=== PATIENT | female | born 1950 | race Hispanic/Latino ===

== ENCOUNTER 2020-04-11 02:11 | Emergency (ER) | payer OTHER ==
[2020-04-11 03:43] LABS: Absolute Lymphocytes (CBC) 2.2 K/uL (0.7-4.9); Basophils % 0.5 % (0-1.3); Hematocrit 41.7 % (36.0-45.0); RBC Red Blood Cell Count 4.63 M/uL (3.86-4.86)
[2020-04-11 03:51] LABS: Protime INR 0.98
[2020-04-11 04:06] LABS: Albumin 3.5 g/dL (3.4-5.0); Bilirubin Direct 0.1 mg/dL (0-0.2); Bilirubin Total 0.3 mg/dL (0.2-1.0); Magnesium 1.9 mg/dL (1.8-2.4); Potassium 3.9 mmol/L (3.5-5.1); Protein, Total 8.6 g/dL (6.4-8.2); Troponin (Emerg Dept Use Only) 0.02 ng/mL (0.0-0.045)
--- NOTE | 2020-04-11 04:28 | ER ---
Nurse's Notes [facility] Name: Johanna Song Age: 69 yrs Sex: Female : 1950 Arrival Date: 04/11/2020 Time: 02:13 Bed 6 Private MD: Diagnosis: Near Syncope;Chest Pain Presentation: 04/11 02:15 Chief complaint: Patient's son or daughter states: pt called her tonight approx 0145 bb and reported that she was feeling dizzy and not right daughter checked her BP and it was elevated at approx 200/100. Coronavirus screen: At this time, the client does not indicate any symptoms associated with coronavirus-19. Ebola Screen: No symptoms or risks identified at this time. Initial Sepsis Screen: Does the patient meet any 2 criteria? No. Patient's initial sepsis screen is negative. Does the patient have a suspected source of infection? No. Patient's initial sepsis screen is negative. Risk Assessment: Do you want to hurt yourself or someone else? Patient reports no desire to harm self or others. Onset of symptoms was April 11, 2020. 02:15 Method Of Arrival: Ambulatory bb 02:15 Acuity: CHAPIN 2 bb Historical: - Allergies: 02:42 No Known Allergies; bb - Home Meds: 02:42 Albuterol Inhl [Active]; gabapentin 300 mg oral cap 1 cap 3 times per day [Active]; bb CertaVite Senior-Antioxidant 0.4-300-250 mg-mcg-mcg oral tab [Active]; folic acid 1 mg Oral tab 1 tab once daily [Active]; amlodipine 5 mg tab 1 tab once daily [Active]; metoprolol tartrate 25 mg Oral tab 1 tab 2 times per day [Active]; losartan potassium 100 mg daily [Active]; Mpap arthritis 650 mg as needed [Active]; Januvia 100 mg oral tab 1 tab once daily [Active]; BRILINTA 90 mg oral tab 1 tab 2 times per day [Active]; Calcium 600 + D(3) 600 mg(1,500mg) -400 unit oral tab twice a day [Active]; hydrochlorothiazide 25 mg Oral tab 1 tab once daily [Active]; ferrous sulfate 325 mg (65 mg iron) Oral TbEC daily [Active]; metformin 1,000 mg Oral tab 1 tab 2 times per day [Active]; atorvastatin 20 mg oral tab 1 tab once daily [Active]; Tresiba FlexTouch U-100 100 unit/mL (3 mL) subcutaneous inpn 60 unit daily [Active]; - PMHx: 02:42 High Cholesterol; Hypertension; Diabetes - IDDM; Myocardial infarction; CAD; bb - PSHx: 02:42 knee replacement; cataract; cornea surgery; bb - Immunization history:: Adult Immunizations unknown. - Social history:: Smoking status: unknown. Screenin:42 Abuse screen: Denies threats or abuse. Denies injuries from another. Nutritional mg2 screening: No deficits noted. Tuberculosis screening: No symptoms or risk factors identified. Fall Risk Fall in past 12 months (25 points). IV access (20 points). Assessment: 02:36 General: Appears in no apparent distress. comfortable, Behavior is calm, cooperative. mg2 Pain: Denies pain. Neuro: Level of Consciousness is awake, alert, obeys commands, Oriented to person, place, time, situation, Reports dizziness. Cardiovascular: Capillary refill < 3 seconds Patient's skin is warm and dry. Respiratory: Airway is patent Respiratory effort is even, unlabored, Respiratory pattern is regular, symmetrical. GI: No signs and/or symptoms were reported involving the gastrointestinal system. : EENT: No signs and/or symptoms were reported regarding the EENT system. Derm: Skin is intact, is healthy with good turgor, Skin is pink, warm \T\ dry. normal. Musculoskeletal: Circulation, motion, and sensation intact. Capillary refill < 3 seconds. 03:30 Reassessment: Patient appears in no apparent distress at this time. Patient and/or mg2 family updated on plan of care and expected duration. Pain level reassessed. Patient is alert, oriented x 3, equal unlabored respirations, skin warm/dry/pink. 04:30 Reassessment: Patient appears in no apparent distress at this time. Patient and/or mg2 family updated on plan of care and expected duration. Pain level reassessed. Patient is alert, oriented x 3, equal unlabored respirations, skin warm/dry/pink. 05:00 Reassessment: patient referred to hospitalist. seen by Flo GÓMEZ -hospitalist and advised mg2 admission but patient refused because she is feeling better and she is going back to her [place] after tomorrow. risk explained and she signed the AMA. accompanied by the family home. Vital Signs: 02:15 BP 186 / 79; Pulse 79; Resp 14 S; Temp 98.3(O); Pulse Ox 94% on R/A; Weight 95.25 kg bb (R); Height 5 ft. 1 in. (154.94 cm) (R); Pain 0/10; 02:36 BP 165 / 58; Pulse 73; Resp 14 S; Pulse Ox 94% on R/A; sg 03:42 BP 179 / 63; Pulse 63; Resp 18; Pulse Ox 94% on R/A; mg2 04:00 BP 137 / 75; Pulse 66; Resp 16; Pulse Ox 96% on R/A; sg 05:00 BP 145 / 55; Pulse 65; Resp 18; Temp 98.2(TE); Pulse Ox 96% on R/A; mg2 02:15 Body Mass Index 39.68 (95.25 kg, 154.94 cm) bb ED Course: 02:13 Patient arrived in ED. am2 02:23 Tomy Darnell MD is Attending Physician. mh7 02:23 Matt Crockett, RN is Primary Nurse. jb4 02:25 Primary Nurse role handed off by Matt Crockett, RN sg 02:25 Vinny Goldstein, RN is Primary Nurse. sg 02:34 Triage completed. bb 02:42 Arm band placed on Patient placed in an exam room, on a stretcher, on front desk monitor, bb on pulse oximetry. EKG completed in triage. Results shown to MD. 03:03 XRAY Chest (1 view) In Process Unspecified. EDMS 03:11 CT Head Brain wo Cont In Process Unspecified. EDMS 03:14 Patient moved back from CT. sg 03:33 Initial lab(s) drawn, by ED staff, sent to lab. Inserted saline lock: 22 gauge in left tt3 antecubital area, using aseptic technique. Blood collected. 03:42 Patient has correct armband on for positive identification. mg2 03:42 No provider procedures requiring assistance completed. mg2 04:26 Lito Early MD is Hospitalizing Provider. mh7 04:48 Watson Payne MD is Referral Physician. mh7 Administered Medications: No medications were administered Outcome: 04:27 Decision to Hospitalize by Provider. mh7 05:06 Patient left the ED. sg Signatures: Dispatcher [employer] Vinny Hyde RN RN sg Beba Rajput RN RN bb Matt Crockett RN RN jb4 Ruma Taylor am Palomo Dillard RN RN [facility] [place] Tomy Darnell MD MD mh7 Thomas Dominique 3
--- NOTE | 2020-04-11 04:28 | EDPHYS ---
Physician Documentation [facility] Name: Johanna Song Age: 69 yrs Sex: Female : 1950 Arrival Date: 04/11/2020 Time: 02:13 Bed 6 Private MD: ED Physician Tomy Darnell HPI: 04/11 02:50 This 69 yrs old Female presents to ER via Ambulatory with complaints of High mh7 Blood Pressure. 02:51 The patient presents with dizziness, feeling faint, lightheadedness. Onset: The mh7 symptoms/episode began/occurred today, at 01:30. Context: occurred at home, occurred while the patient was at rest, just prior to the episode the patient experienced no apparent symptoms. Modifying factors: The symptoms are alleviated by nothing, the symptoms are aggravated by nothing. Associated signs and symptoms: Pertinent positives: chest pain, nausea, near-syncope, shortness of breath, Pertinent negatives: abdominal pain, agitation, ataxia, blurred vision, combativeness, confusion, diaphoresis, focal weakness, head injury, numbness, palpitations, , seizure, syncope, tingling, vomiting. Severity of symptoms: At their worst the symptoms were moderate today, in the emergency department the symptoms have improved moderately. Historical: - Allergies: 02:42 No Known Allergies; bb - Home Meds: 02:42 Albuterol Inhl [Active]; gabapentin 300 mg oral cap 1 cap 3 times per day [Active]; bb CertaVite Senior-Antioxidant 0.4-300-250 mg-mcg-mcg oral tab [Active]; folic acid 1 mg Oral tab 1 tab once daily [Active]; amlodipine 5 mg tab 1 tab once daily [Active]; metoprolol tartrate 25 mg Oral tab 1 tab 2 times per day [Active]; losartan potassium 100 mg daily [Active]; Mpap arthritis 650 mg as needed [Active]; Januvia 100 mg oral tab 1 tab once daily [Active]; BRILINTA 90 mg oral tab 1 tab 2 times per day [Active]; Calcium 600 + D(3) 600 mg(1,500mg) -400 unit oral tab twice a day [Active]; hydrochlorothiazide 25 mg Oral tab 1 tab once daily [Active]; ferrous sulfate 325 mg (65 mg iron) Oral TbEC daily [Active]; metformin 1,000 mg Oral tab 1 tab 2 times per day [Active]; atorvastatin 20 mg oral tab 1 tab once daily [Active]; Tresiba FlexTouch U-100 100 unit/mL (3 mL) subcutaneous inpn 60 unit daily [Active]; - PMHx: 02:42 High Cholesterol; Hypertension; Diabetes - IDDM; Myocardial infarction; CAD; bb - PSHx: 02:42 knee replacement; cataract; cornea surgery; bb - Immunization history:: Adult Immunizations unknown. - Social history:: Smoking status: unknown. ROS: 02:51 Constitutional: Negative for fever, chills, and weight loss, Eyes: Negative for injury, mh7 pain, redness, and discharge, ENT: Negative for injury, pain, and discharge, Neck: Negative for injury, pain, and swelling, Back: Negative for injury and pain, : Negative for injury, bleeding, discharge, and swelling, MS/Extremity: Negative for injury and deformity, Skin: Negative for injury, rash, and discoloration, Psych: Negative for depression, anxiety, suicide ideation, homicidal ideation, and hallucinations, Allergy/Immunology: Negative for hives, rash, and allergies, Endocrine: Negative for neck swelling, polydipsia, polyuria, polyphagia, and marked weight changes, Hematologic/Lymphatic: Negative for swollen nodes, abnormal bleeding, and unusual bruising. Exam: 02:51 Head/Face: Normocephalic, atraumatic. Eyes: Pupils equal round and reactive to light, mh7 extra-ocular motions intact. Lids and lashes normal. Conjunctiva and sclera are non-icteric and not injected. Cornea within normal limits. Periorbital areas with no swelling, redness, or edema. Neck: Trachea midline, no thyromegaly or masses palpated, and no cervical lymphadenopathy. Supple, full range of motion without nuchal rigidity, or vertebral point tenderness. No Meningismus. Chest/axilla: Normal chest wall appearance and motion. Nontender with no deformity. No lesions are appreciated. Cardiovascular: Regular rate and rhythm with a normal S1 and S2. No gallops, murmurs, or rubs. Normal PMI, no JVD. No pulse deficits. Respiratory: Lungs have equal breath sounds bilaterally, clear to auscultation and percussion. No rales, rhonchi or wheezes noted. No increased work of breathing, no retractions or nasal flaring. Abdomen/GI: Soft, non-tender, with normal bowel sounds. No distension or tympany. No guarding or rebound. No evidence of tenderness throughout. Back: No spinal tenderness. No costovertebral tenderness. Full range of motion. Skin: Warm, dry with normal turgor. Normal color with no rashes, no lesions, and no evidence of cellulitis. MS/ Extremity: Pulses equal, no cyanosis. Neurovascular intact. Full, normal range of motion. Neuro: Awake and alert, GCS 15, oriented to person, place, time, and situation. Cranial nerves II-XII grossly intact. Motor strength 5/5 in all extremities. Sensory grossly intact. Cerebellar exam normal. Normal gait. Psych: Awake, alert, with orientation to person, place and time. Behavior, mood, and affect are within normal limits. 02:51 Constitutional: The patient appears in no acute distress, alert, awake, anxious. Vital Signs: 02:15 BP 186 / 79; Pulse 79; Resp 14 S; Temp 98.3(O); Pulse Ox 94% on R/A; Weight 95.25 kg bb (R); Height 5 ft. 1 in. (154.94 cm) (R); Pain 0/10; 02:36 BP 165 / 58; Pulse 73; Resp 14 S; Pulse Ox 94% on R/A; sg 03:42 BP 179 / 63; Pulse 63; Resp 18; Pulse Ox 94% on R/A; mg2 04:00 BP 137 / 75; Pulse 66; Resp 16; Pulse Ox 96% on R/A; sg 05:00 BP 145 / 55; Pulse 65; Resp 18; Temp 98.2(TE); Pulse Ox 96% on R/A; mg2 02:15 Body Mass Index 39.68 (95.25 kg, 154.94 cm) bb MDM: 02:48 Patient medically screened. mh7 04:15 Differential diagnosis: cardiac arrhythmia, CVA, generalized weakness, mh7 hyperventilation, hypovolemia, idiopathic dizziness, near-syncope, syncope, TIA, vertigo. Data reviewed: vital signs, nurses notes. 04:26 Data interpreted: groundwater monitoring technician: Pulse oximetry: on room air is 96 %. Interpretation: mh7 normal. Counseling: I had a detailed discussion with the patient and/or guardian regarding: the historical points, exam findings, and any diagnostic results supporting the discharge/admit diagnosis, the presence of at least one elevated blood pressure reading (>120/80) during this emergency department visit, lab results, radiology results, the need for further work-up and treatment in the hospital. Response to treatment: the patient's symptoms have markedly improved after treatment. 04:45 Refusal of service: The patient/guardian displays adequate decision making capability [facility] and despite a detailed discussion of alternatives, benefits, risks, and consequences refuses: Admission to the hospital for further work-up and treatment. 06:29 ED course: Feels better, NAD, VSS, no focal neurological deficits. No chest pain, SOB, 7 dizziness, headache, nausea, or vomiting. Patient refused admission for further care and evaluation and decided to leave against medical advice. Explained the possibility of permanent disability and or if condition worsened. She has a normal mental status and neurological exam. She knows that she can return to the ED with any concerns.. 04/11 02:50 Order name: Basic Metabolic Panel; Complete Time: 04:09 04/11 02:50 Order name: CBC with Diff; Complete Time: 04:09 04/11 02:50 Order name: LFT's; Complete Time: 04: 04/11 02:50 Order name: Magnesium; Complete Time: 04:09 04/11 02:50 Order name: NT PRO-BNP; Complete Time: 04:09 04/11 02:50 Order name: PT-INR; Complete Time: 04:09 04/11 02:50 Order name: Troponin (emerg Dept Use Only); Complete Time: 04:09 04/11 02:50 Order name: XRAY Chest (1 view) [facility] 04/11 02:50 Order name: EKG; Complete Time: 02:51 04/11 02:50 Order name: Cardiac monitoring; Complete Time: 03:14 04/11 02:50 Order name: EKG - Nurse/Tech; Complete Time: 03:25 04/11 02:50 Order name: IV Saline Lock; Complete Time: 03:25 04/11 02:50 Order name: Labs collected and sent; Complete Time: 03:25 [facility] 04/11 02:50 Order name: CT Head Brain wo Cont [facility] 04/11 02:50 Order name: O2 Per Protocol; Complete Time: 03:25 [facility] 04/11 02:50 Order name: O2 Sat Monitoring; Complete Time: 03:25 [facility] Administered Medications: No medications were administered Disposition: 04/11/20 04:46 Patient has left against medical advice. Impression: Near Syncope, Chest Pain. - Patients states they are going to Home. - Condition is Stable. - Discharge Instructions: Nonspecific Chest Pain, [id number], Dizziness, [id number]. Follow up: Private Physician; When: Today; Reason: Worsening of condition, Recheck today's complaints, Continuance of care, Re-evaluation by your physician. Follow up: Watson Payne MD; When: Today; Reason: Worsening of condition, Recheck today's complaints, Re-evaluation by your physician. - Problem is new. - Symptoms have improved. Signatures: Dispatcher [employer] EDMS Vinny Goldstein RN RN sg Ballard, Brenda, RN RN Tomy Abreu MD MD [facility] Corrections: (The following items were deleted from the chart) 04:45 04:27 Hospitalization Ordered by Lito Early MD for Observation. Preliminary [facility] diagnosis is Near Syncope; Chest Pain. Bed requested for Telemetry/MedSurg (observation). Status is Observation. Condition is Stable. Problem is new. Symptoms have improved. [facility] 04:49 04:46 04/11/2020 04:46 Patients has left against medical advice. Impression: Near mh7 Syncope; Chest Pain. Patient states they are going to Home. Condition is Stable. Follow up: Private Physician; When: Today; Reason: Worsening of condition, Recheck today's complaints, Continuance of care, Re-evaluation by your physician. Problem is new. Symptoms have improved. 7 05:06 04:49 04/11/2020 04:46 Patients has left against medical advice. Impression: Near sg Syncope; Chest Pain. Patient states they are going to Home. Condition is Stable. Discharge Instructions: Nonspecific Chest Pain, [id number], Dizziness, [id number]. Follow up: Private Physician; When: Today; Reason: Worsening of condition, Recheck today's complaints, Continuance of care, Re-evaluation by your physician. Follow up: Watson Payne; When: Today; Reason: Worsening of condition, Recheck today's complaints, Re-evaluation by your physician. Problem is new. Symptoms have improved. mh7
[2020-04-11 05:22] VITALS: TEMP 98.3
[2020-04-11 05:26] VITALS: BP 137/75; O2SAT 96
--- NOTE | 2020-04-11 08:33 | RAD REPORT ---
EXAM DESCRIPTION: RAD - Chest Single View - 04/11/2020 3:03 am CLINICAL HISTORY: SOB Chest pain. COMPARISON: No comparisons FINDINGS: Portable technique limits examination quality. Mild interstitial prominence is seen bilaterally. The heart is upper limit normal in size. No displac ed fractures. IMPRESSION: Mild CHF versus interstitial pneumonia.
--- NOTE | 2020-04-11 16:23 | RAD REPORT ---
EXAM DESCRIPTION: Head Brain Wo Cont CLINICAL HISTORY: DIZZINESS COMPARISON: None. TECHNIQUE: CT HEAD WITHOUT IV CONTRAST on 04/11/2020 2:50 AM CDT This exam was performed according to our departmental dose-optimization program, which includes autom ated exposure control, adjustment of the mA and/or kV according to patient size and/or use of iterati ve reconstruction technique. FINDINGS: There is no acute hemorrhage, mass effect or midline shift. Velasquez-white differentiation is preserved. There is no hydrocephalus. There is no significant volume loss for age. The calvarium is intact. Orbits and globes are unremarkable. The paranasal sinuses are clear. Mastoid air cells are clear. IMPRESSION: No acute intracranial findings. Electronically signed by: Александр Hurst MD 04/11/2020 3:16 AM CDT Due to temporary technical issues with the PACS/Fluency reporting system, reports are being signed by the in house radiologist without review as a courtesy to ensure prompt reporting. The interpreting r adiologist is fully responsible for the content of the report.
== END 2020-04-11 05:06 | disposition left against medical advice (07) ==
LOC: ER 02:11
DX: R55 Syncope and collapse (principal); R07.9 Chest pain, unspecified; I25.2 Old myocardial infarction; I25.10 Atherosclerotic heart disease of native coronary artery without angina pectoris
CPT/HCPCS: 36415; 70450; 71045; 80048; 80076; 83735; 83880; 84484; 85025; 85610; 93005; 99284